=== PATIENT | female | born 1990 | race African-American/Black ===

== ENCOUNTER 2020-04-26 02:12 | Inpatient (IN) | payer MEDICAID, OTHER ==
[~2020-04-26] VITALS: Ht 162.6 cm; Wt 90.7 kg
[2020-04-26] MEDS ORDERED: ASPIRIN 81MG TABLET PO ONE (02:45)
[2020-04-26] MEDS ORDERED: LORAZEPAM 1MG TABLET PO ONE ×2 (02:45→04:30)
[2020-04-26] MEDS ORDERED: ONDANSETRON 4MG ODT PO ONE (03:00)
[2020-04-26 03:24] LABS: BASOPHILS % 0.3 % (0.0-2.0); EOSINOPHILS % 0.7 % (0.0-5.0); HEMATOCRIT. 41.3 % (36.0-48.0); LYMPHOCYTES % 16.5 % (20.0-50.0); MEAN CORPUSCULAR HEMOGLOBIN 30.5 pg (28.0-32.0); MEAN CORPUSCULAR VOLUME 90.2 fL (81.0-99.0); MEAN PLATELET VOLUME 8.8 fl (7.4-10.4); MONOCYTES % 6.1 % (2.0-8.0); NEUTROPHILS % 76.4 % (40.0-76.0); PLATELET 254 x1000/uL (130-400); RED BLOOD CELL COUNT 4.58 mill/uL (4.2-5.4)
[2020-04-26 03:27] LABS: CHLORIDE 103 mEq/L (98-107)
[2020-04-26 03:32] LABS: ETHANOL BLOOD < 10 mg/dL
[2020-04-26] MEDS ORDERED: SODIUM CHLORIDE 0.9% 1000ML BAG (SEPSIS BOLUS) IV ONE (03:45)
[2020-04-26] MEDS ORDERED: SODIUM CHLORIDE 0.9% 1,000 ML IV ONE (03:45)
[2020-04-26 03:51] LABS: *AMPHETAMINES SCREEN URINE NEGATIVE (NEGATIVE); *BARBITURATES SCREEN URINE NEGATIVE (NEGATIVE); *BENZODIAZEPINES SCREEN URINE NEGATIVE (NEGATIVE); *COCAINE SCREEN URINE NEGATIVE (NEGATIVE)
[2020-04-26 03:52] LABS: METHADONE URINE SCREEN NEGATIVE (NEGATIVE); OPIATES URINE SCREEN NEGATIVE (NEGATIVE); PHENCYCLIDINE URINE SCREEN NEGATIVE (NEGATIVE)
[2020-04-26 03:53] LABS: CLARITY URINE CLEAR (CLEAR); COLOR URINE YELLOW (YELLOW); KETONES URINE 1+ (NEGATIVE); LEUKOCYTE ESTERASE URINE NEGATIVE (NEGATIVE); NITRITE URINE NEGATIVE (NEGATIVE); OCCULT BLOOD URINE NEGATIVE (NEGATIVE); PROTEIN URINE NEGATIVE (NEGATIVE); SPECIFIC GRAVITY URINE 1.034 (1.005-1.030); UROBILINOGEN URINE 0.2 E.U./dL (0.2-1.0)
[2020-04-26 03:55] LABS: CANNABINOID URINE SCREEN PRESUMTIVE POSITIVE (NEGATIVE)
[2020-04-26] MEDS ORDERED: POTASSIUM CHLORIDE 20MEQ TABLET SR PO SCH (04:15)
[2020-04-26] MEDS ORDERED: INSULIN LISPRO 100 UNITS/ML SUBCUT SCH (04:30)
[2020-04-26] MEDS ORDERED: ONDANSETRON HCL 4MG/2ML INJ IV ONE (04:30)
[2020-04-26] MEDS ORDERED: POTASSIUM CHLORIDE INJ 40 MEQ in DEXT 5% WATER 250 ML IV SCH (05:00)
[2020-04-26] MEDS ORDERED: GUAIFENESIN 200MG/10ML SUGAR FREE UDC PO PRN (06:45)
[2020-04-26] MEDS ORDERED: DEXTROSE 50% WATER 50ML SYRINGE IV PRN (06:45)
[2020-04-26] MEDS ORDERED: KETOROLAC 15MG/ML VIAL IV PRN (06:45)
[2020-04-26] MEDS ORDERED: NITROGLYCERIN 0.4MG TABLET SL SL PRN (06:45)
[2020-04-26] MEDS ORDERED: MAGNESIUM/ALUMINUM HYDROXIDE/SIMETHICONE 30ML UDC PO PRN (06:45)
[2020-04-26] MEDS ORDERED: ACETAMINOPHEN 325MG TABLET PO PRN ×2 (06:45)
[2020-04-26] MEDS ORDERED: ONDANSETRON HCL 4MG/2ML INJ IV PRN (06:45)
[2020-04-26] MEDS ORDERED: IPRATROPIUM/ALBUTEROL 0.5-3(2.5)MG/3ML NEB ORI PRN (06:45)
[2020-04-26] MEDS ORDERED: CLONIDINE 0.1MG TABLET PO PRN (06:45)
[2020-04-26] MEDS ORDERED: DOCUSATE SODIUM 100MG CAPSULE PO PRN (06:45)
[2020-04-26] MEDS ORDERED: ZOLPIDEM TARTRATE 5MG TABLET PO PRN (06:45)
[2020-04-26] MEDS: INSULIN LISPRO 100 UNITS/ML SUBCUT SCH ×5 (07:50→21:00)
[2020-04-26 08:00] VITALS: BP 130/45
[2020-04-26] MEDS: BLOOD SUGAR DIAGNOSTIC STRIP TEST SCH ×4 (08:11→21:00)
[2020-04-26] MEDS: ASCORBIC ACID 500 MG TABLET PO SCH ×2 (09:39→21:57)
[2020-04-26] MEDS: ZINC SULFATE 220 MG ( 50 ) CAPSULE PO SCH (09:39)
[2020-04-26] MEDS ORDERED: INSULIN GLARGINE UD 100 UNITS/ML SYR SUBCUT SCH (10:00)
[2020-04-26 12:00] VITALS: BP 130/90
[2020-04-26] MEDS: FAMOTIDINE 20MG TABLET PO SCH ×2 (12:44→21:57)
[2020-04-26] MEDS: SODIUM CHLORIDE 0.9% 1,000 ML IV SCH ×2 (12:45→18:12)
[2020-04-26 14:16] VITALS: BP 130/90
[2020-04-26] MEDS: LORAZEPAM 2MG/ML CPJ IV PRN (14:35)
[2020-04-26 16:33] LABS: CREATINE KINASE MB FRACTION 192.9 ng/mL (0.5-3.6)
[2020-04-26] MEDS ORDERED: ASPIRIN 81MG TABLET PO NR (19:30)
[2020-04-26 20:00] VITALS: BP 107/67
[2020-04-26] MEDS: ENOXAPARIN 100MG/ML SYR SUBCUT SCH (20:30)
[2020-04-26] MEDS ORDERED: CLOPIDOGREL 75MG TABLET PO SCH (23:15)
[2020-04-26] MEDS ORDERED: MORPHINE SULFATE 4 MG/ML CPJ (NOT FOR IM USE) IV PRN (23:15)
[2020-04-27] VITALS (47 sets, daily range): BP systolic 93–138; BP diastolic 57–92
[2020-04-27] MEDS: SODIUM CHLORIDE 0.9% 1,000 ML IV SCH (03:30)
[2020-04-27] MEDS: LORAZEPAM 2MG/ML CPJ IV PRN (05:31)
[2020-04-27 06:30] LABS: BASOPHILS % 0.2 % (0.0-2.0); EOSINOPHILS % 0.1 % (0.0-5.0); HEMATOCRIT. 39.6 % (36.0-48.0); HEMOGLOBIN. 13.6 g/dL (12.0-16.0); LYMPHOCYTES % 15.2 % (20.0-50.0); MEAN CORPUSCULAR HEMOGLOBIN 31.1 pg (28.0-32.0); MEAN CORPUSCULAR VOLUME 90.4 fL (81.0-99.0); MEAN PLATELET VOLUME 9.3 fl (7.4-10.4); MONOCYTES % 9.1 % (2.0-8.0); NEUTROPHILS % 75.4 % (40.0-76.0); PLATELET 201 x1000/uL (130-400); RED BLOOD CELL COUNT 4.38 mill/uL (4.2-5.4)
[2020-04-27] MEDS: BLOOD SUGAR DIAGNOSTIC STRIP TEST SCH ×4 (06:37→21:20)
[2020-04-27] MEDS: INSULIN LISPRO 100 UNITS/ML SUBCUT SCH ×8 (06:48→21:30)
[2020-04-27 06:51] LABS: CHLORIDE 101 mEq/L (98-107)
[2020-04-27 07:02] LABS: PHOSPHORUS 2.9 mg/dL (2.5-4.9)
[2020-04-27] MEDS ORDERED: MIDAZOLAM HCL 2 MG/2 ML VIAL ONE (07:03)
[2020-04-27] MEDS ORDERED: IOHEXOL-300 100 ML BOTTLE ONE (07:04)
[2020-04-27] MEDS ORDERED: FENTANYL CITRATE/PF 50MCG/ML 2ML VIAL ONE (07:04)
[2020-04-27] MEDS ORDERED: IODIXANOL 320MG/ML 100 ML BOTTLE IV ONE (07:04)
[2020-04-27] MEDS ORDERED: LIDOCAINE HCL 1% 20ML VIAL (Pyxis) INJ ONE (07:04)
[2020-04-27] MEDS ORDERED: VERAPAMIL HCL 2.5 MG/1 ML 2ML VIAL IV ONE (07:14)
[2020-04-27 07:25] LABS: INR 1.1; PROTHROMBIN TIME 11.1 sec (9.6-11.0)
[2020-04-27] MEDS: ENOXAPARIN 100MG/ML SYR SUBCUT SCH ×2 (08:00→21:19)
[2020-04-27] MEDS: ZINC SULFATE 220 MG ( 50 ) CAPSULE PO SCH (08:09)
[2020-04-27] MEDS: ASCORBIC ACID 500 MG TABLET PO SCH ×2 (08:09→21:20)
[2020-04-27] MEDS: FAMOTIDINE 20MG TABLET PO SCH ×2 (08:09→21:20)
[2020-04-27] MEDS ORDERED: ATROPINE SULFATE 1MG/10ML SYR IV PRN (08:15)
[2020-04-27] MEDS ORDERED: HEPARIN SODIUM 1,000 UNIT/1ML VIAL IV ONE (09:48)
[2020-04-27] MEDS: INSULIN GLARGINE UD 100 UNITS/ML SYR SUBCUT SCH (10:51)
[2020-04-27] MEDS: MORPHINE SULFATE 4 MG/ML CPJ (NOT FOR IM USE) IV PRN ×2 (11:06→19:16)
[2020-04-27] MEDS: SODIUM CHLORIDE 0.45% 500 ML IV SCH ×2 (11:46→18:15)
[2020-04-27] MEDS: TRAMADOL 50MG TABLET PO PRN (17:30)
[2020-04-27] MEDS: COLCHICINE 0.6MG TABLET PO SCH (21:20)
[2020-04-28] VITALS (24 sets, daily range): BP systolic 89–138; BP diastolic 48–78
[2020-04-28] MEDS: MORPHINE SULFATE 4 MG/ML CPJ (NOT FOR IM USE) IV PRN (04:23)
[2020-04-28] MEDS: SODIUM CHLORIDE 0.45% 500 ML IV SCH ×3 (04:24→23:54)
[2020-04-28 06:53] LABS: BASOPHILS % 0.3 % (0.0-2.0); EOSINOPHILS % 0.3 % (0.0-5.0); HEMATOCRIT. 35.6 % (36.0-48.0); HEMOGLOBIN. 12.2 g/dL (12.0-16.0); LYMPHOCYTES % 22.2 % (20.0-50.0); MEAN CORPUSCULAR HEMOGLOBIN 30.8 pg (28.0-32.0); MEAN CORPUSCULAR VOLUME 90.3 fL (81.0-99.0); MONOCYTES % 13.9 % (2.0-8.0); NEUTROPHILS % 63.3 % (40.0-76.0); PLATELET 174 x1000/uL (130-400); RED BLOOD CELL COUNT 3.95 mill/uL (4.2-5.4); RED CELL DISTRIBUTION WIDTH 13.2 % (11.6-14.6)
[2020-04-28 07:04] LABS: CHLORIDE 102 mEq/L (98-107)
[2020-04-28 07:12] LABS: PHOSPHORUS 2.3 mg/dL (2.5-4.9)
[2020-04-28] MEDS: BLOOD SUGAR DIAGNOSTIC STRIP TEST SCH ×4 (07:50→20:44)
[2020-04-28] MEDS: INSULIN LISPRO 100 UNITS/ML SUBCUT SCH ×7 (07:50→21:00)
[2020-04-28] MEDS: COLCHICINE 0.6MG TABLET PO SCH ×2 (08:38→22:10)
[2020-04-28] MEDS: CLOPIDOGREL 75MG TABLET PO SCH (08:38)
[2020-04-28] MEDS: ASCORBIC ACID 500 MG TABLET PO SCH ×2 (08:38→22:10)
[2020-04-28] MEDS: ASPIRIN 81MG TABLET PO SCH (08:38)
[2020-04-28] MEDS: FAMOTIDINE 20MG TABLET PO SCH ×2 (08:58→22:10)
[2020-04-28] MEDS: ZINC SULFATE 220 MG ( 50 ) CAPSULE PO SCH (08:58)
[2020-04-28] MEDS: ENOXAPARIN 100MG/ML SYR SUBCUT SCH ×2 (08:59→21:05)
[2020-04-28] MEDS: INSULIN GLARGINE UD 100 UNITS/ML SYR SUBCUT SCH (09:01)
[2020-04-28] MEDS ORDERED: POTASSIUM PHOS,M-BASIC-D-BASIC 15 MMOL in DEXT 5% WATER 245 ML IV ONE (11:00)
[2020-04-28] MEDS: TRAMADOL 50MG TABLET PO PRN (18:50)
[2020-04-28] MEDS: METOPROLOL TARTRATE 25MG TABLET PO SCH (21:00)
[2020-04-29] VITALS (19 sets, daily range): BP systolic 79–118; BP diastolic 32–67
[2020-04-29] MEDS: SODIUM CHLORIDE 0.45% 500 ML IV SCH (00:17)
[2020-04-29] MEDS: MORPHINE SULFATE 4 MG/ML CPJ (NOT FOR IM USE) IV PRN (01:15)
[2020-04-29 05:56] LABS: BASOPHILS % 0.7 % (0.0-2.0); EOSINOPHILS % 0.7 % (0.0-5.0); HEMATOCRIT. 34.3 % (36.0-48.0); HEMOGLOBIN. 11.7 g/dL (12.0-16.0); LYMPHOCYTES % 33.2 % (20.0-50.0); MEAN CORPUSCULAR HEMOGLOBIN 30.8 pg (28.0-32.0); MEAN CORPUSCULAR VOLUME 90.5 fL (81.0-99.0); MEAN PLATELET VOLUME 8.7 fl (7.4-10.4); MONOCYTES % 9.3 % (2.0-8.0); NEUTROPHILS % 56.1 % (40.0-76.0); PLATELET 172 x1000/uL (130-400); RED BLOOD CELL COUNT 3.79 mill/uL (4.2-5.4); RED CELL DISTRIBUTION WIDTH 12.8 % (11.6-14.6)
[2020-04-29 06:08] LABS: CHLORIDE 103 mEq/L (98-107)
[2020-04-29 07:31] LABS: CLARITY URINE CLOUDY (CLEAR); COLOR URINE YELLOW (YELLOW); KETONES URINE NEGATIVE (NEGATIVE); LEUKOCYTE ESTERASE URINE 3+ (NEGATIVE); NITRITE URINE NEGATIVE (NEGATIVE); OCCULT BLOOD URINE NEGATIVE (NEGATIVE); PH URINE 5.5 (4.5-8.0); PROTEIN URINE NEGATIVE (NEGATIVE); SPECIFIC GRAVITY URINE 1.038 (1.005-1.030); UROBILINOGEN URINE 0.2 E.U./dL (0.2-1.0)
[2020-04-29] MEDS: CLOPIDOGREL 75MG TABLET PO SCH (09:07)
[2020-04-29] MEDS: COLCHICINE 0.6MG TABLET PO SCH (09:07)
[2020-04-29] MEDS: FAMOTIDINE 20MG TABLET PO SCH (09:07)
[2020-04-29] MEDS: ASPIRIN 81MG TABLET PO SCH (09:07)
[2020-04-29] MEDS: ENOXAPARIN 100MG/ML SYR SUBCUT SCH (09:08)
[2020-04-29] MEDS: ASCORBIC ACID 500 MG TABLET PO SCH (09:08)
[2020-04-29] MEDS: ZINC SULFATE 220 MG ( 50 ) CAPSULE PO SCH (09:08)
[2020-04-29] MEDS: INSULIN LISPRO 100 UNITS/ML SUBCUT SCH ×2 (09:09→09:20)
[2020-04-29] MEDS: BLOOD SUGAR DIAGNOSTIC STRIP TEST SCH (09:16)
[2020-04-29] MEDS: METOPROLOL TARTRATE 25MG TABLET PO SCH (09:27)
[2020-04-29] MEDS ORDERED: LISINOPRIL 2.5MG TABLET PO SCH (09:30)
[2020-04-29] MEDS: INSULIN GLARGINE UD 100 UNITS/ML SYR SUBCUT SCH (09:39)
[2020-04-29] MEDS ORDERED: ATORVASTATIN CALCIUM 40MG TABLET PO SCH (21:00)
== END 2020-04-29 14:30 | disposition home or self-care (01) | DRG 174 ==
LOC: ER 02:12 → 6WST 05:10 → EDBEDREQ 05:38 → ENRESERV 07:23 → 6WST 08:14 → CVICU 04-27 10:12
PROVIDERS: ADMIT Internal Medicine; ATTEND Internal Medicine
PROC: 027034Z Dilation of Coronary Artery, One Artery with Drug-eluting Intraluminal Device, Percutaneous Approach (ICD-10-PCS; principal; 2020-04-27)
PROC: B211YZZ Fluoroscopy of Multiple Coronary Arteries using Other Contrast (ICD-10-PCS; 2020-04-27)
DX: I21.4 Non-ST elevation (NSTEMI) myocardial infarction (principal); I25.119 Atherosclerotic heart disease of native coronary artery with unspecified angina pectoris; E10.10 Type 1 diabetes mellitus with ketoacidosis without coma; F12.10 Cannabis abuse, uncomplicated; I25.5 Ischemic cardiomyopathy; I50.23 Acute on chronic systolic (congestive) heart failure; I11.0 Hypertensive heart disease with heart failure; I30.9 Acute pericarditis, unspecified; F17.210 Nicotine dependence, cigarettes, uncomplicated; E66.9 Obesity, unspecified; E10.42 Type 1 diabetes mellitus with diabetic polyneuropathy; D72.829 Elevated white blood cell count, unspecified; Z68.34 Body mass index [BMI] 34.0-34.9, adult; Z91.19 Patient's noncompliance with other medical treatment and regimen; Z79.4 Long term (current) use of insulin; Z91.14 Patient's other noncompliance with medication regimen
CPT/HCPCS: 36415; 71045; 71275; 80048; 80053; 80061; 80305; 80320; 81003; 81025; 82010; 82550; 82553; 82962; 83036; 83735; 83880; 84100; 84484; 85025; 85347; 85651; 86140; 92928; 93005; 93306; 93458; 93970; 99291; C1725; C1769; C1874; C1887; C1893; J1644; J1650; J1815; J1885; J2060; J2250; J2270; J2405; J3010; J3480; J3490; J7060; Q0162; Q9967; G0480

== ENCOUNTER 2024-12-19 17:31 | Emergency (ER) | payer MEDICAID ==
[~2024-12-19] VITALS: Ht 121.9 cm; Wt 64.0 kg
[2024-12-19 17:33] VITALS: O2SAT 98
[2024-12-19 18:37] LABS: BASOPHILS % 0.9 % (0.0-2.0); EOSINOPHILS % 2.3 % (0.0-5.0); HEMATOCRIT. 41.6 % (36.0-48.0); LYMPHOCYTES % 32.5 % (20.0-50.0); MEAN CORPUSCULAR HEMOGLOBIN 30.1 pg (28.0-32.0); MEAN CORPUSCULAR HGB CONC 33.7 g/dL (31.0-37.0); MEAN CORPUSCULAR VOLUME 89.3 fL (81.0-99.0); MEAN PLATELET VOLUME 10.2 fl (7.4-10.4); MONOCYTES % 7.7 % (2.0-8.0); NEUTROPHILS % 56.6 % (40.0-76.0); PLATELET 186 x1000/uL (130-400); RED BLOOD CELL COUNT 4.66 mill/uL (4.2-5.4); WHITE BLOOD COUNT 8.2 x1000/uL (4.5-11.0)
[2024-12-19 18:46] LABS: CHLORIDE 106 mEq/L (98-107); POTASSIUM 3.8 mEq/L (3.5-5.1); SODIUM 136 mEq/L (136-145)
[2024-12-19 18:47] LABS: CALCIUM 9.5 mg/dL (8.7-10.4); CARBON DIOXIDE 24 mEq/L (21-32); INR 0.9; PARTIAL THROMBOPLASTIN TIME < 21.0 sec (23.4-31.0); PROTHROMBIN TIME 10.1 sec (9.6-11.0)
[2024-12-19 18:50] LABS: DIFFERENTIAL COMMENT 1
[2024-12-19 18:52] LABS: CREATININE 0.8 mg/dL (0.6-1.0); GLUCOSE 261 mg/dL (70-105); UREA NITROGEN BLOOD 9 mg/dL (9-23)
[2024-12-19] MEDS: MORPHINE SULFATE 4 MG/ML INJ (FOR IV/IM USE) IV ONE ×2 (18:52→21:05)
[2024-12-19 18:53] LABS: HCG SCREEN NEGATIVE
[2024-12-19] MEDS: DIPHENHYDRAMINE 50MG/ML VIAL IV ONE ×2 (18:53→21:04)
[2024-12-19 19:03] LABS: TROPONIN I HIGH SENSITIVITY < 4 ng/L (3.0-34)
[2024-12-19 21:19] LABS: TROPONIN I HIGH SENSITIVITY < 4 ng/L (3.0-34)
[2024-12-19] MEDS ORDERED: KETO10TA2 MT (21:28)
[2024-12-19] MEDS ORDERED: MAG-55 MT (21:28)
[2024-12-19] MEDS ORDERED: FAMO-135 MT (21:28)
[2024-12-19] MEDS ORDERED: SULF1TAB48 MT (21:56)
[2024-12-19 22:08] VITALS: BP 129/77; PULSE 68; RESP 17; O2SAT 99
== END 2024-12-19 22:14 | disposition home or self-care (01) ==
LOC: ER 17:31
DX: R07.89 Other chest pain (principal); L03.314 Cellulitis of groin; E11.9 Type 2 diabetes mellitus without complications; I10 Essential (primary) hypertension; I25.2 Old myocardial infarction; Z98.890 Other specified postprocedural states; Z79.4 Long term (current) use of insulin
CPT/HCPCS: 99285; 96374; 71045; 96375; 80048; 84703; 85025; 85610; 85730; 84484; 36415; 93005; 96376; J1200; J2270

== ENCOUNTER 2025-01-11 04:14 | Inpatient (IN) | payer MEDICAID ==
[~2025-01-11] VITALS: Ht 127 cm; Wt 72.6 kg
[~2025-01-11 04:14] MED LIST: FAMO-135 MT; KETO10TA2 MT; MAG-55 MT; SULF1TAB48 MT
[2025-01-11 04:18] VITALS: O2SAT 99
[2025-01-11] MEDS: ONDANSETRON HCL 4MG/2ML INJ IV STA (04:58)
[2025-01-11] MEDS: MORPHINE SULFATE 4 MG/ML INJ (FOR IV/IM USE) IV STA (04:59)
[2025-01-11] MEDS: DIPHENHYDRAMINE 50MG/ML VIAL IV ONE (04:59)
[2025-01-11] MEDS: SODIUM CHLORIDE 0.9% 1,000 ML IV ONE (05:07)
[2025-01-11 05:38] LABS: BASOPHILS % 0.5 % (0.0-2.0); EOSINOPHILS % 2.6 % (0.0-5.0); HEMATOCRIT. 38.3 % (36.0-48.0); HEMOGLOBIN. 12.9 g/dL (12.0-16.0); LYMPHOCYTES % 29.2 % (20.0-50.0); MEAN CORPUSCULAR HGB CONC 33.8 g/dL (31.0-37.0); MEAN CORPUSCULAR VOLUME 88.8 fL (81.0-99.0); MEAN PLATELET VOLUME 9.1 fl (7.4-10.4); NEUTROPHILS % 59.7 % (40.0-76.0); PLATELET 248 x1000/uL (130-400); RED BLOOD CELL COUNT 4.31 mill/uL (4.2-5.4); RED CELL DISTRIBUTION WIDTH 14.3 % (11.6-14.6); WHITE BLOOD COUNT 7.6 x1000/uL (4.5-11.0)
[2025-01-11 05:52] LABS: CHLORIDE 103 mEq/L (98-107); POTASSIUM 3.9 mEq/L (3.5-5.1); SODIUM 138 mEq/L (136-145)
[2025-01-11 05:53] LABS: CALCIUM 8.9 mg/dL (8.7-10.4); CARBON DIOXIDE 24 mEq/L (21-32)
[2025-01-11 05:58] LABS: CREATININE 0.8 mg/dL (0.6-1.0); GLUCOSE 217 mg/dL (70-105); UREA NITROGEN BLOOD 13 mg/dL (9-23)
[2025-01-11 06:00] LABS: ALANINE AMINOTRANSFERASE 7 IU/L (10-49); ALBUMIN 4.2 g/dL (3.2-4.8); ASPARTATE AMINOTRANSFERASE 10 IU/L (<34); BILIRUBIN DIRECT < 0.1 mg/dL (<=3.0)
[2025-01-11 06:01] LABS: PROTEIN TOTAL 6.5 g/dL (6.0-8.3)
[2025-01-11 06:10] LABS: BILIRUBIN TOTAL 0.3 mg/dL (0.1-1.0)
[2025-01-11 06:18] LABS: HCG SCREEN POSITIVE
[2025-01-11] MEDS: MORPHINE SULFATE 4 MG/ML INJ (FOR IV/IM USE) IV ONE (07:04)
[2025-01-11] MEDS ORDERED: IPRATROPIUM/ALBUTEROL 0.5-3(2.5)MG/3ML NEB HHN PRN (08:15)
[2025-01-11] MEDS ORDERED: GUAIFENESIN 200MG/10ML SUGAR FREE UDC PO PRN (08:15)
[2025-01-11] MEDS ORDERED: DOCUSATE SODIUM 100MG CAPSULE PO PRN (08:15)
[2025-01-11] MEDS ORDERED: MAGNESIUM/ALUMINUM HYDROXIDE/SIMETHICONE 30ML UDC PO PRN (08:15)
[2025-01-11] MEDS ORDERED: ACETAMINOPHEN 325MG TABLET PO PRN ×2 (08:15)
[2025-01-11] MEDS ORDERED: CLONIDINE 0.1MG TABLET PO PRN (08:15)
[2025-01-11] MEDS ORDERED: NALOXONE HCL 0.4MG/ML VIAL IV PRN (09:00)
[2025-01-11] MEDS ORDERED: DEXTROSE 50% WATER 50ML SYRINGE IV PRN (09:15)
[2025-01-11 09:28] VITALS: BP 101/71; PULSE 65; RESP 18; TEMP 37.1; O2SAT 97
[2025-01-11] MEDS: FOLIC ACID 1MG TABLET PO SCH (09:38)
[2025-01-11] MEDS: APIXABAN 5 MG TABLET PO SCH (09:38)
[2025-01-11] MEDS: SODIUM CHLORIDE 0.9% 1,000 ML IV NR (09:38)
[2025-01-11] MEDS: INSULIN GLARGINE 100 UNITS/ML SUBCUT ONE (09:51)
[2025-01-11] MEDS: DIPHENHYDRAMINE 25MG CAPSULE PO SCH (11:00)
[2025-01-11] MEDS: MORPHINE SULFATE 2 MG/ML INJ (NOT FOR IM USE) IV PRN (11:20)
[2025-01-11 11:56] VITALS: BP 101/71; PULSE 65; RESP 18; TEMP 36.5
[2025-01-11 12:00] VITALS: BP 114/69; PULSE 77; RESP 18; TEMP 36.6; O2SAT 100
[2025-01-11] MEDS: BLOOD SUGAR DIAGNOSTIC STRIP TEST SCH (12:28)
[2025-01-11] MEDS ORDERED: LANTUSUD SUBCUT (12:35)
[2025-01-11] MEDS ORDERED: APIX2.5T MT (12:35)
[2025-01-11] MEDS: INSULIN LISPRO 100 UNITS/ML SUBCUT SCH (13:04)
[2025-01-11 16:00] VITALS: BP 105/67; PULSE 71; RESP 18; TEMP 36.9; O2SAT 100
[2025-01-11 20:00] VITALS: BP 116/67; PULSE 70; RESP 18; TEMP 36.8; O2SAT 97
[2025-01-11] MEDS: FAMOTIDINE 20MG TABLET PO SCH (21:15)
[2025-01-11] MEDS: DIPHENHYDRAMINE 50MG/ML VIAL IV NR (21:20)
[2025-01-12] VITALS: BP 112/70; PULSE 72; RESP 18; TEMP 36.4; O2SAT 98
[2025-01-12 04:00] VITALS: BP 100/54; PULSE 74; RESP 18; TEMP 36.3; O2SAT 99
[2025-01-12] MEDS: ONDANSETRON HCL 4MG/2ML INJ IV PRN (06:23)
[2025-01-12 06:58] LABS: CARBON DIOXIDE 24 mEq/L (21-32); CHLORIDE 105 mEq/L (98-107); POTASSIUM 4.2 mEq/L (3.5-5.1); SODIUM 138 mEq/L (136-145)
[2025-01-12 06:59] LABS: CALCIUM 8.7 mg/dL (8.7-10.4)
[2025-01-12 07:03] LABS: CREATININE 0.7 mg/dL (0.6-1.0)
[2025-01-12 07:04] LABS: GLUCOSE 144 mg/dL (70-105); UREA NITROGEN BLOOD < 5 mg/dL (9-23)
[2025-01-12 08:00] VITALS: BP 114/73; PULSE 75; RESP 18; TEMP 36.7; O2SAT 99
[2025-01-12] MEDS: DIPHENHYDRAMINE 50MG/ML VIAL IV PRN (09:10)
[2025-01-12 12:00] VITALS: BP 109/74; PULSE 64; RESP 18; TEMP 36.5; O2SAT 98
[2025-01-12 14:50] VITALS: BP 109/74; PULSE 64; TEMP 97.7
== END 2025-01-12 16:08 | disposition home or self-care (01) | DRG 566 ==
LOC: ER 04:14 → 8WST 06:57
PROVIDERS: ADMIT Internal Medicine; ATTEND Internal Medicine
DX: O00.91 Unspecified ectopic pregnancy with intrauterine pregnancy (principal); D57.00 Hb-SS disease with crisis, unspecified; O24.311 Unspecified pre-existing diabetes mellitus in pregnancy, first trimester; O99.411 Diseases of the circulatory system complicating pregnancy, first trimester; O99.011 Anemia complicating pregnancy, first trimester; Z3A.01 Less than 8 weeks gestation of pregnancy; I50.9 Heart failure, unspecified; K21.9 Gastro-esophageal reflux disease without esophagitis; O99.611 Diseases of the digestive system complicating pregnancy, first trimester; I25.10 Atherosclerotic heart disease of native coronary artery without angina pectoris; Z89.611 Acquired absence of right leg above knee; O10.111 Pre-existing hypertensive heart disease complicating pregnancy, first trimester; I99.8 Other disorder of circulatory system; Z95.5 Presence of coronary angioplasty implant and graft; Z89.612 Acquired absence of left leg above knee; Z79.01 Long term (current) use of anticoagulants; Z79.4 Long term (current) use of insulin; Z91.148 Patient's other noncompliance with medication regimen for other reason; Z99.3 Dependence on wheelchair
CPT/HCPCS: 36415; 71045; 76801; 80048; 80076; 82962; 83036; 83605; 84702; 84703; 85025; 96361; 96374; 96375; 99285; J1200; J1815; J2270; J2405; J7030; Q0163